=== PATIENT | female | born 1965 | race Caucasian/White ===

== ENCOUNTER 2017-11-22 08:01 | Emergency (ER) | payer BC ==
[~2017-11-22] VITALS: Ht 167.6 cm; Wt 63.5 kg
[2017-11-22 08:06] VITALS: Ht 167.6 cm; Wt 63.5 kg
[2017-11-22 10:24] VITALS: BP 122/79
== END 2017-11-22 10:43 | disposition home or self-care (01) ==
LOC: ED 08:01
DX: S13.4XXA Sprain of ligaments of cervical spine, initial encounter (principal); V43.52XA Car driver injured in collision with other type car in traffic accident, initial encounter; Y93.I9 Activity, other involving external motion; Y92.89 Other specified places as the place of occurrence of the external cause; Y99.8 Other external cause status
CPT/HCPCS: J1885